=== PATIENT | male | born 1985 | race Asian ===

== ENCOUNTER 2024-02-04 21:38 | Emergency (ER) | payer BC ==
[~2024-02-04] VITALS: Ht 165.1 cm; Wt 104.3 kg
[2024-02-04 22:09] VITALS: BP_SYST 110; PULSE 103; RESP 18; TEMP 97.8; O2SAT 100
[2024-02-04 22:48] LABS: ANION GAP 8 (5-15); CALCIUM 9.8 mg/dL (8.4-11.0); CARBON DIOXIDE 26 mmol/L (23-29); CHLORIDE 105 mmol/L (98-107); CREATININE 0.72 mg/dL (0.55-1.30); GFR AFRICAN AMERICAN 155 mL/min (>90); GLUCOSE 93 mg/dL (74-106); POTASSIUM 3.5 mmol/L (3.5-5.1); SODIUM SERUM 139 mmol/L (136-145); UREA NITROGEN, BLOOD 14 mg/dL (8-21)
[2024-02-04 22:49] LABS: GFR NON AFRICAN-AMERICAN 128 mL/min (>90)
[2024-02-04] MEDS: KETOROLAC TROMETHAMINE 30 MG VIAL IM ONE (23:01)
[2024-02-04] MEDS: predniSONE 20 MG TABLET PO ONE (23:02)
[2024-02-04 23:03] LABS: BASOPHILS # (AUTO) 0.1 K/uL (0.0-0.2); EOSINOPHILS # (AUTO) 0.2 K/uL (0.0-0.4); EOSINOPHILS % (AUTO) 2.4 % (0.0-4.0); HEMATOCRIT 35.8 % (36-54); HEMOGLOBIN 12.3 g/dL (14.0-18.0); LYMPHOCYTES # (AUTO) 2.5 K/uL (1.0-5.5); LYMPHOCYTES % (AUTO) 24.1 % (20.5-51.5); MEAN CORPUSCULAR HEMOGLOBIN 31 pg (27-31); MEAN CORPUSCULAR HGB CONC 34 % (32-36); MEAN CORPUSCULAR VOLUME 91 fL (79.0-98.0); MONOCYTES # (AUTO) 0.8 K/uL (0.0-1.0); MONOCYTES % (AUTO) 7.7 % (1.7-9.3); NEUTROPHILS # (AUTO) 6.7 K/uL (1.8-7.7); NEUTROPHILS % (AUTO) 64.8 % (40.0-70.0); PLATELET COUNT (AUTO) 335 K/uL (130-430); RED BLOOD CELL COUNT(AUTO) 3.95 MIL/uL (4.2-6.2); RED CELL DISTRIBUTION WIDTH 15.1 % (9.0-15.0); WHITE BLOOD COUNT (AUTO) 10.3 K/uL (4.8-10.8)
[2024-02-05] MEDS ORDERED: iohexoL 350 mgI/mL, 100 ML INFUS..BTL IV ONE (01:27)
[2024-02-05] MEDS ORDERED: ALLO100T PO (02:20)
[2024-02-05] MEDS ORDERED: [UNRECOGNIZED DRUG - CODE] PO (02:20)
[2024-02-05] MEDS ORDERED: ACET325T PO (02:20)
[2024-02-05] MEDS ORDERED: PRO40 PO (02:20)
[2024-02-05] MEDS ORDERED: FOLI-43 PO (02:20)
[2024-02-05] MEDS ORDERED: HYDR-3917 PO (02:20)
[2024-02-05] MEDS ORDERED: DOCU-156 PO (02:46)
[2024-02-05] MEDS ORDERED: NEU300 PO (02:50)
[2024-02-05] MEDS ORDERED: MAGN400T10 PO (02:53)
[2024-02-05] MEDS ORDERED: METO25TA6 PO (02:57)
[2024-02-05] MEDS ORDERED: LACT1TAB21 PO (02:58)
[2024-02-05] MEDS ORDERED: SENN8.6T19 PO (03:04)
[2024-02-05] MEDS ORDERED: HEPA500015 SUBCUT (03:04)
[2024-02-05] MEDS ORDERED: PEPTO PO (03:05)
[2024-02-05] MEDS: NACL 0.9% 1,000 ML IV ONE (05:54)
[2024-02-05] MEDS: HYDROcodone/ACETAMIN 5-325 MG TAB (NORCO/ VICODIN) PO ONE (05:55)
[2024-02-05 09:26] VITALS: BP_SYST 126; PULSE 110; RESP 16; TEMP 98; O2SAT 98
== END 2024-02-05 09:21 | disposition short-term general hospital (02) ==
LOC: SED 21:38
DX: R07.9 Chest pain, unspecified (principal); M79.671 Pain in right foot; M79.672 Pain in left foot; Z86.69 Personal history of other diseases of the nervous system and sense organs; Z79.899 Other long term (current) drug therapy; Z20.822 Contact with and (suspected) exposure to COVID-19
CPT/HCPCS: 99285; 71045; 87426; 80048; 83880; 85025; 85379; 84484; 36415; 93005; 73620; 96372; 96360; 71275; J7512; J1885; Q9967; J7030